=== PATIENT | female | born 1965 | race African-American/Black ===

== ENCOUNTER 2017-06-21 13:10 | Emergency (ER) | payer MEDICAID ==
[2017-06-21] MEDS ORDERED: MAG HYDROX/AL HYDROX/SIMETH SUSP 30 ML UDCUP PO ONE (13:43)
[2017-06-21] MEDS ORDERED: LIDOCAINE 2% VISCOUS SOLN 20 ML UDCUP PO ONE (13:43)
[2017-06-21] MEDS ORDERED: METOCLOPRAMIDE HCL ORAL SOLN 10 MG/10 ML UDCUP PO ONE (13:43)
--- NOTE | 2017-06-21 13:45 | ER Document Report ---
ED Medical Screen (RME) - General Chief Complaint: Chest Pain Stated Complaint: CHEST PAIN Time Seen by Provider: 06/21/17 13:41 Notes: Patient reports bad cough shortness of breath and chest pain. TRAVEL OUTSIDE OF THE [place] IN LAST 30 DAYS: No - Related Data Allergies/Adverse Reactions: amoxicillin Allergy (Verified 06/21/17 13:25) Penicillins Allergy (Verified 06/21/17 13:25) quinine Allergy (Verified 06/21/17 13:25) warfarin [From Coumadin] Allergy (Verified 06/21/17 13:25) Past Medical History Renal/ Medical History: Denies: Hx Peritoneal Dialysis Physical Exam - Vital signs Vitals: Temp Pulse Resp BP Pulse Ox 99.3 F 90 24 H 135/70 H 100 06/21/17 13:25 06/21/17 13:25 06/21/17 13:25 06/21/17 13:25 06/21/17 13:25 Course - Vital Signs Vital signs: Temp Pulse Resp BP Pulse Ox 99.3 F 90 24 H 135/70 H 100 06/21/17 13:25 06/21/17 13:25 06/21/17 13:25 06/21/17 13:25 06/21/17 13:25
[2017-06-21 14:15] LABS: ABSOLUTE EOSINOPHILS # (AUTO) 0.1 10^3/uL (0.0-0.6); ABSOLUTE LYMPHOCYTES (AUTO) 1.8 10^3/uL (0.5-4.7); ABSOLUTE MONOCYTES (AUTO) 0.4 10^3/uL (0.1-1.4); ABSOLUTE NEUT (AUTO) 6.4 10^3/uL (1.7-8.2); BASOPHILS % (AUTO) 0.4 % (0-2); EOSINOPHILS % (AUTO) 0.9 % (0-6); HEMATOCRIT 27.4 % (36.0-47.0); HEMOGLOBIN 8.5 g/dL (12.0-15.5); HGB HCT DIFFERENCE -1.9; MEAN CORPUSCULAR HEMOGLOBIN 20.9 pg (27.0-33.4); MEAN CORPUSCULAR VOLUME 67 fl (80-97); RED BLOOD COUNT 4.07 10^6/uL (3.72-5.28); RED CELL DISTRIBUTION WIDTH 18.4 % (11.5-14.0); SEGMENTED NEUTROPHILS % (AUTO) 72.7 % (42-78); WHITE BLOOD COUNT 8.8 10^3/uL (4.0-10.5)
[2017-06-21 14:36] LABS: ALANINE AMINOTRANSFERASE 25 U/L (9-52); ALBUMIN 3.9 g/dL (3.5-5.0); ALKALINE PHOSPHATASE 72 U/L (38-126); ANION GAP 12 (5-19); ASPARTATE AMINO TRANSFERASE 21 U/L (14-36); BILIRUBIN,DIRECT 0.3 mg/dL (0.0-0.4); BILIRUBIN,TOTAL 0.5 mg/dL (0.2-1.3); BLOOD UREA NITROGEN 7 mg/dL (7-20); CARBON DIOXIDE 25 mmol/L (22-30); CHLORIDE 107 mmol/L (98-107); CREATININE RESULT 0.96 mg/dL (0.52-1.25); GLUCOSE 101 mg/dL (75-110); POTASSIUM 3.9 mmol/L (3.6-5.0); SODIUM 144.4 mmol/L (137-145); TOTAL PROTEIN 6.2 g/dL (6.3-8.2)
--- NOTE | 2017-06-21 14:52 | RADIOLOGY REPORT (SQ) ---
EXAM DESCRIPTION: CHEST PA/LAT COMPLETED DATE/TIME: 06/21/2017 2:23 pm REASON FOR STUDY: cough COMPARISON: None. NUMBER OF VIEWS: Two view. TECHNIQUE: Frontal and lateral radiographic views of the chest acquired. LIMITATIONS: None. FINDINGS: LUNGS AND PLEURA: No opacities, masses or pneumothorax. No pleural effusion. MEDIASTINUM AND HILAR STRUCTURES: No masses or contour abnormalities. HEART AND VASCULATURE: Heart normal size. No evidence for failure. BONY STRUCTURES: No acute findings. HARDWARE: None. OTHER: No other significant finding. IMPRESSION: NO SIGNIFICANT RADIOGRAPHIC FINDING IN THE CHEST. TECHNICAL DOCUMENTATION: JOB ID: [id number] [employer]- All Rights Reserved
[2017-06-21] MEDS ORDERED: ALBUTEROL SULFATE HFA (90 MCG/PUFF) 8 GM MDI (1 MDI/ER DISP) IH ONE (16:41)
[2017-06-21] MEDS ORDERED: PREDNISONE 20 MG TABLET PO ONE (16:41)
--- NOTE | 2017-06-21 16:58 | ER Document Report ---
ED General - General Chief Complaint: Chest Pain Stated Complaint: CHEST PAIN Time Seen by Provider: 06/21/17 13:41 TRAVEL OUTSIDE OF THE [place] IN LAST 30 DAYS: No - HPI Patient complains to provider of: Sore throat cough chest wall pain Notes: Patient coming in for evaluation of sore throat chest wall pain (pain with cough and movement )cough ongoing for the last 3 weeks. Patient states she does not feel she is getting better. Patient states she is tried multiple over- the-counter remedies with no relief. Patient does admit to smoking intermittently. Patient denies any fevers or chills denies any diarrhea abdominal pain. Patient is resting currently upon my evaluation patient is speaking with a hoarse voice. - Related Data Allergies/Adverse Reactions: amoxicillin Allergy (Verified 06/21/17 13:25) Penicillins Allergy (Verified 06/21/17 13:25) quinine Allergy (Verified 06/21/17 13:25) warfarin [From Coumadin] Allergy (Verified 06/21/17 13:25) Past Medical History - Social History Smoking Status: Current Every Day Smoker Family History: Reviewed & Not Pertinent Patient has suicidal ideation: No Patient has homicidal ideation: No Pulmonary Medical History: Reports: Hx COPD Renal/ Medical History: Denies: Hx Peritoneal Dialysis Past Surgical History: Reports: Hx Section - 2, Hx Thyroid Surgery, Hx Tonsillectomy Review of Systems - Review of Systems Constitutional: No symptoms reported EENT: No symptoms reported Cardiovascular: No symptoms reported Respiratory: Cough, Short of breath, Wheezing Gastrointestinal: No symptoms reported Genitourinary: No symptoms reported Female Genitourinary: No symptoms reported Musculoskeletal: No symptoms reported Skin: No symptoms reported Hematologic/Lymphatic: No symptoms reported Neurological/Psychological: No symptoms reported -: Yes All other systems reviewed and negative Physical Exam - Vital signs Vitals: Temp Pulse Resp BP Pulse Ox 99.3 F 90 24 H 135/70 H 100 06/21/17 13:25 06/21/17 13:25 06/21/17 13:25 06/21/17 13:25 06/21/17 13:25 Interpretation: Normal - General General appearance: Appears well, Alert - HEENT Head: Normocephalic, Atraumatic Eyes: Normal Pupils: PERRL - Respiratory Respiratory status: No respiratory distress Chest status: Tender - Diffuse tenderness to palpation of the chest Breath sounds: Normal, Wheezing Chest palpation: Normal - Cardiovascular Rhythm: Regular Heart sounds: Normal auscultation Murmur: No - Abdominal Inspection: Normal Distension: No distension Bowel sounds: Normal Tenderness: Nontender Organomegaly: No organomegaly - Back Back: Normal, Nontender - Extremities General upper extremity: Normal inspection, Nontender, Normal color, Normal ROM , Normal temperature General lower extremity: Normal inspection, Nontender, Normal color, Normal ROM , Normal temperature, Normal weight bearing. No: Guillermina's sign - Neurological Neuro grossly intact: Yes Cognition: Normal Orientation: AAOx4 Benito Coma Scale Eye Opening: Spontaneous Benito Coma Scale Verbal: Oriented [place] Coma Scale Motor: Obeys Commands Benito Coma Scale Total: 15 Speech: Normal Motor strength normal: LUE, RUE, LLE, RLE Sensory: Normal - Psychological Associated symptoms: Normal affect, Normal mood - Skin Skin Temperature: Warm Skin Moisture: Dry Skin Color: Normal Course - Re-evaluation Re-evalutation: 06/21/17 19:15 The patient has typical chest wall pain as the patient's chest pain is not suggestive of pulmonary embolus, cardiac ischemia, aortic dissection, or other serious etiology. Given the extremely low risk of these diagnoses further testing and evaluation for these possibilities does not appear to be indicated at this time. The patient has been instructed to return if the symptoms worsen or change in any way. Patient has symptoms consistent with a viral upper respiratory infection. Patient will be given a dose of steroids today and her symptoms encouraged to continue take her bronchodilators. At this time no need for any antibiotics patient will be discharged - Vital Signs Vital signs: Temp Pulse Resp BP Pulse Ox 98.8 F 90 16 139/90 H 93 06/21/17 17:11 06/21/17 13:25 06/21/17 17:11 06/21/17 17:11 06/21/17 17:11 - Laboratory Result Diagrams: 06/21/17 13:54 06/21/17 13:54 Laboratory results interpreted by me: 06/21/17 06/21/17 13:54 13:54 Hgb 8.5 L Hct 27.4 L MCV 67 L MCH 20.9 L MCHC 31.0 L RDW 18.4 H Total Protein 6.2 L Discharge - Discharge Clinical Impression: URI (upper respiratory infection) Qualifiers: URI type: unspecified viral URI Qualified Code(s): J06.9 - Acute upper respiratory infection, unspecified Condition: Good Disposition: HOME, SELF-CARE Instructions: Upper Respiratory Illness ([facility]) Additional Instructions: Evaluation does not reveal any signs of infection or pneumonia that will require antibiotics. To help with your symptoms we will start you on steroids please continue your albuterol treatments every 4 hours please stop smoking return to the ER symptoms worsen. Prescriptions: Prednisone [Deltasone] 60 mg PO DAILY #24 tablet Forms: Return to Work
[2017-06-21 17:23] VITALS: BP 139/90
--- NOTE | 2017-06-21 21:16 | EKG REPORT ---
SEVERITY:- OTHERWISE NORMAL ECG - SINUS RHYTHM LEFT AXIS DEVIATION : Confirmed by: Beth Tian MD 21-Jun-2017 21:15:03
== END 2017-06-21 17:22 | disposition home or self-care (01) ==
LOC: ER 13:10
DX: J06.9 Acute upper respiratory infection, unspecified (principal); J02.9 Acute pharyngitis, unspecified; R05 Cough; R07.89 Other chest pain; F17.200 Nicotine dependence, unspecified, uncomplicated
CPT/HCPCS: 93005; 99285; 36415; 85025; 80053; 71020; 93010; J3490 ×2; J7512